=== PATIENT | male | born 1990 | race Native Hawaiian/Other Pacific Islander ===

== ENCOUNTER 2017-08-01 16:11 | Emergency (ER) | payer OTHER ==
[2017-08-01 16:16] VITALS: TEMP 97.6; O2SAT 99
[2017-08-01] MEDS ORDERED: Bacitracin OINT 15GM TOP STA (16:27)
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
[2017-08-01 17:42] VITALS: BP 124/75; PULSE 88; RESP 14
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
== END 2017-08-01 17:34 | disposition home or self-care (01) ==
LOC: H.ER 16:11
DX: S80.211A Abrasion, right knee, initial encounter (principal); S50.811A Abrasion of right forearm, initial encounter; Y92.481 Parking lot as the place of occurrence of the external cause; V43.52XA Car driver injured in collision with other type car in traffic accident, initial encounter; Y99.0 Civilian activity done for income or pay